=== PATIENT | female | born 1965 | race American Indian/Alaskan Native ===

== ENCOUNTER 2017-02-27 16:26 | Emergency (ER) | payer OTHER ==
[2017-02-27 16:35] VITALS: BP 157/114
[2017-02-27 16:55] LABS: Basophils % (Auto) 0.2 % (0.0-1.8); Hematocrit 36.9 % (30.3-42.9); Hemoglobin 12.5 gm/dl (10.1-14.3); Mean Corpuscular HGB Conc 34 % (30-34); Mean Corpuscular Hemoglobin 29 pg (28-32); Mean Corpuscular Volume 85 fl (79-97); Platelet Count 208 K/mm3 (140-440); Red Blood Count 4.33 M/mm3 (3.65-5.03)
[2017-02-27 17:17] LABS: Anion Gap 20 mmol/L; BUN/Creatinine Ratio 22.85; Blood Urea Nitrogen 16 mg/dL (7-17); Calcium 9.5 mg/dL (8.4-10.2); Carbon Dioxide 24 mmol/L (22-30); Chloride 100.1 mmol/L (98-107); Glucose 104 mg/dL (65-100); Potassium 3.6 mmol/L (3.6-5.0); Sodium 140 mmol/L (137-145)
--- NOTE | 2017-03-02 01:38 | ED Elopement Review ---
ED Pt Elopement review - Results review Lab results: Laboratory Tests 02/27/17 02/27/17 16:41 16:41 WBC 8.0 RBC 4.33 Hgb 12.5 Hct 36.9 MCV 85 MCH 29 MCHC 34 RDW 13.0 L Plt Count 208 Lymph % (Auto) 18.7 Frontier % (Auto) 9.5 H Eos % (Auto) 1.0 Baso % (Auto) 0.2 Lymph # 1.5 Frontier # 0.8 Eos # 0.1 Baso # 0.0 Seg Neutrophils % 70.6 H Seg Neutrophils # 5.6 Sodium 140 Potassium 3.6 Chloride 100.1 Carbon Dioxide 24 Anion Gap 20 BUN 16 Creatinine 0.7 Estimated GFR > 60 BUN/Creatinine Ratio 22.85 Glucose 104 H Calcium 9.5 - Call Back decision Pt Call Back Decision: No action required
== END 2017-02-27 23:45 | disposition left against medical advice (07) ==
LOC: ED 16:26
DX: M54.9 Dorsalgia, unspecified (principal); Z53.21 Procedure and treatment not carried out due to patient leaving prior to being seen by health care provider
CPT/HCPCS: 36415; 80048; 85025

== ENCOUNTER 2017-10-22 12:19 | Emergency (ER) | payer OTHER ==
[2017-10-22 12:33] VITALS: BP 148/99
--- NOTE | 2017-10-22 14:33 | Emergency Department Report ---
ED Headache HPI - General Chief Complaint: Headache Stated Complaint: GARCIA Time Seen by Provider: 10/22/17 13:56 - History of Present Illness Initial Comments: Patient is a 52-year-old female who is presenting with headache. Patient states the headache is a 4 out of 10 in severity and is global. Patient states that is currently 4 out 10 yesterday it was a 7 out of 10 in severity. Patient has a history of hypertension and took her blood pressure yesterday while she was having the headache and was 171/131. Patient states she's been relatively noncompliant with her blood pressure medicine since she moved to [place] 2 years ago. Patient had a 3 month supply of Norvasc which she moved here and has been taking it only when she gets headaches. Patient denies any chest pain or shortness of breath decreased urination and nausea vomiting Allergies/Adverse Reactions: Allergies metoclopramide HCl [From Reglan] Allergy (Verified 05/08/15 10:11) Seizure promethazine HCl [From Phenergan] Allergy (Verified 05/08/15 10:11) Seizure Home Medications: Ambulatory Orders amLODIPine [Norvasc] 10 mg PO DAILY #30 tab 10/22/17 traMADol [Ultram] 50 mg PO Q6HR PRN #12 tablet 10/22/17 ED Review of Systems ROS: Stated complaint: GARCIA Other details as noted in HPI Comment: All other systems reviewed and negative ED Past Medical Hx - Past Medical History Previous Medical History?: Yes Hx Hypertension: Yes (noncompliant with meds) Hx of Cancer: Yes (breana mastectomy) - Surgical History Past Surgical History?: Yes Hx Cholecystectomy: Yes Hx Breast Surgery: Yes (mastectomy) Additional Surgical History: lumpectomy. port to left chest. double mastectomy - Social History Smoking Status: Never Smoker Substance Use Type: Prescribed - Medications Home Medications: Home Medications Medication Instructions Recorded Confirmed Last Taken Type amLODIPine [Norvasc] 10 mg PO DAILY #30 tab 10/22/17 Unknown Rx traMADol [Ultram] 50 mg PO Q6HR PRN #12 tablet 10/22/17 Unknown Rx ED Physical Exam - General Limitations: No Limitations General appearance: alert, in no apparent distress - Head Head exam: Present: atraumatic, normocephalic - Eye Eye exam: Present: normal appearance - ENT ENT exam: Present: mucous membranes moist - Neck Neck exam: Present: normal inspection - Respiratory Respiratory exam: Present: normal lung sounds bilaterally. Absent: respiratory distress - Cardiovascular Cardiovascular Exam: Present: regular rate, normal rhythm. Absent: systolic murmur, diastolic murmur, rubs, gallop - GI/Abdominal GI/Abdominal exam: Present: soft, normal bowel sounds - Extremities Exam Extremities exam: Present: normal inspection - Back Exam Back exam: Present: normal inspection - Neurological Exam Neurological exam: Present: alert, oriented X3 - Psychiatric Psychiatric exam: Present: normal affect, normal mood - Skin Skin exam: Present: warm, dry, intact, normal color. Absent: rash ED Course Vital Signs 10/22/17 12:29 Temperature 97.9 F Pulse Rate 89 Respiratory 18 Rate Blood Pressure 148/99 O2 Sat by Pulse 98 Oximetry ED Medical Decision Making - Medical Decision Making Patient's blood pressure on arrival 148/99 and is not at the level that she cannot be discharged home. Patient's havesigns and symptoms end organ damage except for mild headache. Patient is laughing and joking and does not seem to be in any distress. Critical care attestation.: If time is entered above; I have spent that time in minutes in the direct care of this critically ill patient, excluding procedure time. ED Disposition Clinical Impression: Hypertension Qualifiers: Hypertension type: essential hypertension Qualified Code(s): I10 - Essential ( primary) hypertension Disposition: DC- TO HOME OR SELFCARE Is pt being admited?: No Does the pt Need Aspirin: No Condition: Stable Instructions: Hypertension (ED) Prescriptions: amLODIPine [Norvasc] 10 mg PO DAILY #30 tab traMADol [Ultram] 50 mg PO Q6HR PRN #12 tablet PRN Reason: Pain Referrals: LOLI KRAFT MD [Staff Physician] - as needed (vasicular doctor) SHANNON BLAKE MD [Staff Physician] - 7-10 days
== END 2017-10-22 14:40 | disposition home or self-care (01) ==
LOC: ED 12:19
DX: I10 Essential (primary) hypertension (principal); Z90.49 Acquired absence of other specified parts of digestive tract; Z90.13 Acquired absence of bilateral breasts and nipples; Z85.3 Personal history of malignant neoplasm of breast; Z88.8 Allergy status to other drugs, medicaments and biological substances
CPT/HCPCS: 99282

== ENCOUNTER 2018-09-08 10:25 | Emergency (ER) | payer OTHER ==
[2018-09-08] MEDS ORDERED: DUONEB *Not for PRN Use IH ONE (14:05)
[2018-09-08] MEDS ORDERED: NORVASC PO ONE (14:06)
[2018-09-08] MEDS ORDERED: FIORICET PO ONE ×2 (14:06→14:38)
[2018-09-08] MEDS ORDERED: PROVENTIL IH ONE (14:09)
--- NOTE | 2018-09-08 15:00 | XRay Report ---
ROUTINE CHEST, TWO VIEWS: HISTORY: Cough. Compared to 05/08/15. Normal heart and mediastinal structures. Left subclavian [id number] terminates in the lower SVC. The lungs are clear. No pleural effusion or pneumothorax. Surgical clips in the right axilla are noted. No bony abnormality is detected. IMPRESSION: Unremarkable chest x-ray. No change since 2014.
--- NOTE | 2018-09-08 15:25 | Emergency Department Report ---
ED General Adult HPI - General Chief complaint: Upper Respiratory Infection Stated complaint: COUGH/CHEST/ Time Seen by Provider: 09/08/18 13:31 Source: patient Mode of arrival: Ambulatory Limitations: No Limitations - History of Present Illness Initial comments: Patient presents to the emergency department with a chief complaint of a cough 1 week. Patient also complains of having some right arm pain from her elbow down with tingling in the right hand when the arm is used. Patient also complains of a slight headache that is not the worse headache of her life. 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 also had chemotherapy for breast cancer -: Gradual Severity scale (0 -10): 6 Consistency: constant Improves with: none Worsens with: none Associated Symptoms: denies other symptoms Treatments Prior to Arrival: none - Related Data Previous Rx's Medication Instructions Recorded Last Taken Type amLODIPine [Norvasc] 10 mg PO DAILY #30 tab 10/22/17 Unknown Rx traMADol [Ultram] 50 mg PO Q6HR PRN #12 tablet 10/22/17 Unknown Rx ALBUTEROL Inhaler (OR & NICU) 2 puff IH Q4HR PRN #1 inhalation 09/08/18 Unknown Rx [ProAir HFA Inhaler] Butalb/Acetamin/Caff 50-325-40 1 tab PO Q6HR PRN #24 tab 09/08/18 Unknown Rx [Fioricet] Ibuprofen [Motrin] 800 mg PO Q8HR PRN #30 tablet 09/08/18 Unknown Rx Prednisone [predniSONE 10 mg 10 mg PO .TAPER #1 tab.ds.pk 09/08/18 Unknown Rx (6-Day Pack, 21 Tabs)] amLODIPine [Norvasc] 10 mg PO DAILY #30 tab 09/08/18 Unknown Rx guaiFENesin/CODEINE [Robitussin AC] 5 ml PO Q12HR PRN #180 oral.liqd 09/08/18 Unknown Rx traMADol [Ultram] 50 mg PO Q6HR PRN #24 tablet 09/08/18 Unknown Rx Allergies Allergy/AdvReac Type Severity Reaction Status Date / Time metoclopramide HCl Allergy Seizure Verified 09/08/18 10:26 [From Reglan] promethazine HCl Allergy Seizure Verified 09/08/18 10:26 [From Phenergan] ED Review of Systems ROS: Stated complaint: COUGH/CHEST/ Other details as noted in HPI Comment: All other systems reviewed and negative Constitutional: denies: chills, fever Eyes: denies: eye pain, eye discharge, vision change ENT: denies: ear pain, throat pain Respiratory: denies: cough, shortness of breath, wheezing Cardiovascular: denies: chest pain, palpitations Endocrine: no symptoms reported Gastrointestinal: denies: abdominal pain, nausea, diarrhea Genitourinary: denies: urgency, dysuria, discharge Musculoskeletal: denies: back pain, joint swelling, arthralgia Skin: denies: rash, lesions Neurological: denies: headache, weakness, paresthesias Psychiatric: denies: anxiety, depression Hematological/Lymphatic: denies: easy bleeding, easy bruising ED Past Medical Hx - Past Medical History Previous Medical History?: Yes Hx Hypertension: Yes (noncompliant with meds) Hx of Cancer: Yes (bilateral breast 2010) - Surgical History Past Surgical History?: Yes Hx Cholecystectomy: Yes Hx Breast Surgery: Yes (mastectomy) Additional Surgical History: lumpectomy. port to left chest. double mastectomy - Social History Smoking Status: Never Smoker Substance Use Type: None - Medications Home Medications: Home Medications Medication Instructions Recorded Confirmed Last Taken Type amLODIPine [Norvasc] 10 mg PO DAILY #30 tab 10/22/17 Unknown Rx traMADol [Ultram] 50 mg PO Q6HR PRN #12 tablet 10/22/17 Unknown Rx ALBUTEROL Inhaler (OR & NICU) 2 puff IH Q4HR PRN #1 inhalation 09/08/18 Unknown Rx [ProAir HFA Inhaler] Butalb/Acetamin/Caff 50-325-40 1 tab PO Q6HR PRN #24 tab 09/08/18 Unknown Rx [Fioricet] Ibuprofen [Motrin] 800 mg PO Q8HR PRN #30 tablet 09/08/18 Unknown Rx Prednisone [predniSONE 10 mg 10 mg PO .TAPER #1 tab.ds.pk 09/08/18 Unknown Rx (6-Day Pack, 21 Tabs)] amLODIPine [Norvasc] 10 mg PO DAILY #30 tab 09/08/18 Unknown Rx guaiFENesin/CODEINE [Robitussin AC] 5 ml PO Q12HR PRN #180 oral.liqd 09/08/18 Unknown Rx traMADol [Ultram] 50 mg PO Q6HR PRN #24 tablet 09/08/18 Unknown Rx ED Physical Exam - General Limitations: No Limitations General appearance: alert, in no apparent distress - Head Head exam: Present: atraumatic, normocephalic - Eye Eye exam: Present: normal appearance, PERRL, EOMI - ENT ENT exam: Present: mucous membranes moist - Neck Neck exam: Present: normal inspection - Respiratory Respiratory exam: Present: normal lung sounds bilaterally, wheezes. Absent: respiratory distress, rales - Cardiovascular Cardiovascular Exam: Present: regular rate, normal rhythm. Absent: systolic murmur, diastolic murmur, rubs, gallop - GI/Abdominal GI/Abdominal exam: Present: soft, normal bowel sounds. Absent: distended, tenderness - Extremities Exam Extremities exam: Present: normal inspection, other (tenderness to palpation along the lower aspect of the radius at its proximal aspect right arm; able to re-create symptoms with tapping of the nerve XI aspect of the radius) - Back Exam Back exam: Present: normal inspection - Neurological Exam Neurological exam: Present: alert, oriented X3, CN II-XII intact. Absent: motor sensory deficit - Psychiatric Psychiatric exam: Present: normal affect, normal mood - Skin Skin exam: Present: warm, dry, intact, normal color. Absent: rash ED Course Vital Signs 09/08/18 09/08/18 09/08/18 10:38 13:33 14:17 Temperature 97.5 F L Pulse Rate 78 77 89 Respiratory 18 Rate Blood Pressure 186/116 202/118 Blood Pressure 203/139 [Left] O2 Sat by Pulse 100 Oximetry 09/08/18 15:19 Temperature Pulse Rate Respiratory 18 Rate Blood Pressure Blood Pressure [Left] O2 Sat by Pulse Oximetry ED Medical Decision Making - Medical Decision Making Discussed results with patient Critical care attestation.: If time is entered above; I have spent that time in minutes in the direct care of this critically ill patient, excluding procedure time. ED Disposition Clinical Impression: Bronchitis, HTN (hypertension), Radiculopathy Disposition: TO HOME OR SELFCARE Is pt being admited?: No Does the pt Need Aspirin: No Condition: Stable Instructions: Hypertension (ED), Acute Bronchitis (ED) Additional Instructions: return if worse Prescriptions: Prednisone [predniSONE 10 mg (6-Day Pack, 21 Tabs)] 10 mg PO .TAPER #1 tab.ds.pk Referrals: OBIEKWE,ONWURA, MD [Primary Care Provider] - 3-5 Days SALOMON TSE DO [Staff Physician] - 3-5 Days Time of Disposition: 15:26
[2018-09-08 15:27] VITALS: BP 194/102
== END 2018-09-08 15:42 | disposition home or self-care (01) ==
LOC: ED 10:25
DX: J40 Bronchitis, not specified as acute or chronic (principal); I10 Essential (primary) hypertension; M54.10 Radiculopathy, site unspecified; Z90.49 Acquired absence of other specified parts of digestive tract; Z85.3 Personal history of malignant neoplasm of breast; Z88.8 Allergy status to other drugs, medicaments and biological substances
CPT/HCPCS: 71046; 93005; 93010; 94640